=== PATIENT | female | born 1990 | race Two or more races ===

== ENCOUNTER 2021-09-29 13:50 | Emergency (ER) | payer OTHER ==
[~2021-09-29] VITALS: Ht 167.6 cm; Wt 59.4 kg
[2021-09-29] MEDS ORDERED: PRENA1 TRUE CO1 EACH PO (14:32)
[2021-09-29] MEDS ORDERED: MUCINEX FAST-M180 M2 PO (16:56)
== END 2021-09-29 17:08 | disposition home or self-care (01) ==
LOC: ER 13:50
DX: U07.1 COVID-19 (principal); E86.0 Dehydration